=== PATIENT | female | born 1970 | race Caucasian/White ===

== ENCOUNTER 2016-07-21 19:01 | Emergency (ER) | payer OTHER ==
[~2016-07-21] VITALS: Ht 157.5 cm; Wt 82.1 kg
[~2016-07-21 19:01] MED LIST: EFFE150C PO; ULTR50TA5 PO; WARF-23 PO; ZOFR4TAB3 SL
[2016-07-21 19:23] VITALS: BP 158/113; PULSE 105; RESP 18; TEMP 99.1; O2SAT 96
[2016-07-21] MEDS ORDERED: MORPHINE SULFATE 4 MG/ML INJ IV PUSH ONE (20:00)
[2016-07-21] MEDS ORDERED: SODIUM CHLOR 0.9% 1000 ML INJ 1,000 ML IV SCH (20:00)
[2016-07-21 20:01] LABS: BLOOD, URINE LARGE (NEG); GLUCOSE,URINE NEG (NEG); KETONE, URINE NEG (NEG); NITRITE,URINE NEG (NEG); PH, URINE 5.5 (5.0-8.5)
[2016-07-21 20:03] LABS: URINE COLOR STRAW (YELLW/STRAW)
[2016-07-21 20:04] LABS: WBC, URINE 0-2 /hpf (0-5)
[2016-07-21 20:05] LABS: COMMENT (UR) CULT NOT INDICATED; CULTURE IF INDICATED CULT NOT INDICATED; SQUAMOUS EPITHELIAL CELL URINE 0-5 /hpf (0-5)
--- NOTE | 2016-07-21 20:25 | PD ---
HPI Chief Complaint: Complaint Time Seen by Provider: 19:58 Travel History International Travel<30 days: No Contact w/Intl Traveler<30days: No Traveled to known affect area: No History of Present Illness HPI 46-year-old female presents to the emergency department by private transportation for complaint of lower abdominal pain and lower back pain and hematuria. Patient states she started noticing that she didn't feel well on Sunday of this week and then noted today that she felt feverish and noted gross hematuria. Patient takes Coumadin for factor V Leiden. Patient rates her pain as moderate to severe. Patient denies frequency or urgency; but has had dysuria. Patient has been seen in the past for episodes of low back pain pelvic pain without vaginal bleeding and hematuria. Patient is status post hysterectomy, cholecystectomy and appendectomy. No report of vaginal bleeding. Patient has prior history of kidney stones chronic back pain and bleeding related to ovarian cyst. Patient states that her last INR about a month ago was 2.7 and her INR range is therapeutic between 2 and 3. Patient was to have her INR checked July 07 but was busy working and did not do so. Patient has not noted any increased bleeding specifically patient does not report increased ecchymosis gingival bleeding epistaxis hemoptysis hematemesis coffee-ground emesis melena or hematochezia. Patient did not contact her primary care provider. PFSH Past Medical History Narrative Medical Factor V Leiden deficiency anxiety asthma fibromyalgia celiac disease headache hypertension chronic back pain ovarian cyst hysterectomy cholecystectomy herniorrhaphy breast augmentation no tobacco use nursing notes reviewed Hx Anticoagulant Therapy: Yes (COUMADIN) Anemia: Yes (B12 DEFICIENCY) Arthritis: Yes Asthma: Yes Autoimmune Disease: Yes Blood Disorders: Yes (FACTOR V LEIDEN) Anxiety: Yes Depression: Yes Heart Rhythm Problems: No Cancer: No Cardiovascular Problems: No High Cholesterol: No Chemotherapy: No Chest Pain: No Congestive Heart Failure: No COPD: No Cerebrovascular Accident: No Diabetes: No Diminished Hearing: No Diverticulitis: Yes Endocrine: No Fibromyalgia: Yes Gastrointestinal Disorders: Yes (CELIAC DISEASE) GERD: Yes Genitourinary: No Headaches: Yes Hiatal Hernia: No Hypertension: Yes Immune Disorder: No Kidney Stones: Yes Musculoskeletal: Yes (CHRONIC BACK PAIN) Neurologic: Yes Psychiatric: Yes Reproductive: Yes (HYSTERECTOMY) Respiratory: Yes (ASTHMA) Immunizations Current: Yes Migraines: Yes Myocardial Infarction: No Radiation Therapy: No Renal Failure: No Seizures: No Shingles: Yes Sleep Apnea: No Thyroid Disease: No Ulcer: No PNEUMOCCOCAL Vaccine (Year): 2 ?: Not Menopausal: Yes : 3 Para: 3 Miscarriage: 0 : 0 Ovarian Cysts: Yes (RIGHT CYST DIAGNOSED IN APR 2015) Tubal Ligation: Yes Past Surgical History Abdominal Surgery: Yes (HERNIA) AICD: No Appendectomy: No Arteriovenous Shunt: No Cardiac Surgery: No Cholecystectomy: Yes Ear Surgery: No Endocrine Surgery: No Eye Surgery: No Genitourinary Surgery: No Gynecologic Surgery: Yes (LAPROSCOPY) Hysterectomy: Yes Insulin Pump: No Joint Replacement: No Neurologic Surgery: Yes (low back surgery) Oral Surgery: No Pacemaker: No Thoracic Surgery: No Tonsillectomy: Yes Other Surgery: Yes (HERNIA, BREAST ENHANCEMENT) Social History Alcohol Use: No Tobacco Use: No Substance Use: No Allergies-Medications (Allergen,Severity, Reaction): Coded Allergies: Adhesives (Verified Allergy, Severe, ON BAND AIDES AND SOME IV DRESSINGS, 07/21/16) Demerol (Verified Allergy, Severe, Hives, 07/21/16) Dilaudid (Verified Allergy, Severe, "CAUSES ASTHMA TO FLARE UP", 07/21/16) Keflex (Verified Allergy, Severe, HIVES, 07/21/16) Lodine (Verified Allergy, Severe, "ITCHY", 07/21/16) Lyrica (Verified Allergy, Severe, "MAKE WHOLE BODY ACHE", 07/21/16) Penicillin (Verified Allergy, Severe, CAN'T REMEMBER, 07/21/16) Percocet (Verified Allergy, Severe, Itching, 07/21/16) Versed (Verified Allergy, Severe, VOMITTING, 07/21/16) Atenolol (Verified Allergy, Unknown, Edema, 07/21/16) Cymbalta (Verified Adverse Reaction, Mild, BODY PAIN, 07/21/16) Reported Meds & Prescriptions Reported Meds & Active Scripts Active Zofran Odt (Ondansetron Odt) 4 Mg Tab 4 Mg SL Q6HR PRN Tramadol (Tramadol HCl) 50 Mg Tab 50 Mg PO Q8H PRN Pyridium (Phenazopyridine HCl) 100 Mg Tab 100 Mg PO Q8H PRN Reported Warfarin 5 Mg Tab 5 Mg PO DAILY Effexor XR 24 HR (Venlafaxine HCl) 150 Mg Cap 150 Mg PO DAILY Review of Systems Except as stated in HPI: all other systems reviewed are Neg General / Constitutional: Positive: Fever (subjective), No: Chills HENT: No: Nosebleed, Gingival Bleeding Cardiovascular: No: Chest Pain or Discomfort Respiratory: No: Shortness of Breath Gastrointestinal: Positive: Nausea, No: Hematemesis, Hematochezia Genitourinary: Positive: Hematuria, No: Vaginal Bleeding Musculoskeletal: No: Myalgias, Arthralgias Skin: No Rash Neurologic: No: Weakness Psychiatric: No: Anxiety Hematologic/Lymphatic: No: Easy Bruising Physical Exam Narrative GENERAL: Well-developed well-nourished female in no acute distress no respiratory distress SKIN: Warm and dry. HEAD: Normocephalic. EYES: No scleral icterus. No injection or drainage. NECK: Supple, trachea midline. No JVD or lymphadenopathy. CARDIOVASCULAR: Regular rate and rhythm without murmurs, gallops, or rubs. RESPIRATORY: Breath sounds equal bilaterally. No accessory muscle use. GASTROINTESTINAL: Abdomen soft, non-tender, nondistended. MUSCULOSKELETAL: No cyanosis, or edema. BACK: Nontender without obvious deformity. No CVA tenderness. Data Data Last Documented VS Vital Signs Date Time Temp Pulse Resp B/P Pulse Ox O2 Delivery O2 Flow Rate FiO2 07/21/16 19:23 99.1 105 18 158/113 96 Orders Urinalysis - C+S If Indicated (07/21/16 19:35) Prothrombin Time / Inr (Pt) (07/21/16 19:58) Morphine Inj (Morphine Inj) (07/21/16 20:00) Sodium Chlor 0.9% 1000 Ml Inj (Ns 1000 M (07/21/16 20:00) Complete Blood Count With Diff (07/21/16 19:58) Basic Metabolic Panel (Bmp) (07/21/16 19:58) Ct Abd/Pel W/O Iv Contrast (07/21/16 ) Ondansetron Inj (Zofran Inj) (07/21/16 20:30) Labs Laboratory Tests Test 07/21/16 07/21/16 19:35 20:15 Urine Color STRAW Urine Turbidity CLEAR Urine pH 5.5 Urine Specific [place] 1.005 Urine Protein TRACE mg/dL Urine Glucose (UA) NEG mg/dL Urine Ketones NEG mg/dL Urine Occult Blood LARGE Urine Nitrite NEG Urine Bilirubin NEG Urine Leukocyte Esterase NEG Urine RBC 25-49 /hpf Urine WBC 0-2 /hpf Urine Squamous Epithelial 0-5 /hpf Cells Microscopic Urinalysis Comment CULT NOT INDICATED White Blood Count 12.2 TH/MM3 Red Blood Count 5.34 MIL/MM3 Hemoglobin 14.5 GM/DL Hematocrit 43.4 % Mean Corpuscular Volume 81.1 FL Mean Corpuscular Hemoglobin 27.0 PG Mean Corpuscular Hemoglobin 33.3 % Concent Red Cell Distribution Width 14.9 % Platelet Count 242 TH/MM3 Mean Platelet Volume 9.8 FL Neutrophils (%) (Auto) 64.7 % Lymphocytes (%) (Auto) 28.5 % Monocytes (%) (Auto) 4.0 % Eosinophils (%) (Auto) 1.4 % Basophils (%) (Auto) 1.4 % Neutrophils # (Auto) 7.8 TH/MM3 Lymphocytes # (Auto) 3.5 TH/MM3 Monocytes # (Auto) 0.5 TH/MM3 Eosinophils # (Auto) 0.2 TH/MM3 Basophils # (Auto) 0.2 TH/MM3 CBC Comment DIFF FINAL Differential Comment Prothrombin Time 24.6 SEC Prothromb Time International 2.2 RATIO Ratio Sodium Level 141 MEQ/L Potassium Level 3.4 MEQ/L Chloride Level 102 MEQ/L Carbon Dioxide Level 29.5 MEQ/L Anion Gap 10 MEQ/L Blood Urea Nitrogen 10 MG/DL Creatinine 0.90 MG/DL Estimat Glomerular Filtration 67 ML/MIN Rate Random Glucose 103 MG/DL Calcium Level 8.9 MG/DL [facility] Medical Decision Making Medical Screen Exam Complete: Yes Emergency Medical Condition: Yes Medical Record Reviewed: Yes Interpretation(s) Last Impressions Abdomen/Pelvis CT 07/21/16 0000 Signed Impressions: Service Date/Time: Thursday, July 21, 2016 20:24 - CONCLUSION: 1. The kidneys remain unremarkable with no renal calculi or obstruction. 2. Status post cholecystectomy. 3. Stable right-sided bladder calcifications. Billy Roy MD CBC & BMP Diagram 07/21/16 20:15 Vital Signs Date Time Temp Pulse Resp B/P Pulse Ox O2 Delivery O2 Flow Rate FiO2 07/21/16 19:23 99.1 105 18 158/113 96 Urinalysis: Positive for large blood and rbc's 25-49 otherwise values are normal range and culture is not indicated INR is therapeutic at 2.2 Differential Diagnosis Hematuria, UTI, renal mass, bladder mass, bladder hematoma, Coumadin coagulopathy Narrative Course Due to patient's complaint of pain morphine sulfate 3 mg IV was administered along with Zofran 4 mg IV for complaint of nausea and maintenance IV fluids at 100 cc Specimens are collected and sent for resulting; CT abdomen and pelvis kidney stone protocol ordered Lab values found to be grossly within normal range except for total white cell count 12,200 nonspecific with normal automated differential hemoglobin and platelet count; metabolic panel was remarkable for mild hypokalemia of 3.4 values otherwise grossly normal range; urinalysis did show large blood with 25- 49 rbc's but no indication for culture and denies otherwise in normal range; patient's INR is therapeutic at 2.2 as patient does take warfarin therapy Imaging study was found to be essentially unremarkable and no evidence for renal stone hydroureter or hydronephrosis renal mass or concern for bladder mass. Patient noted to have some stable bladder calcifications unchanged from previous study. At 9:12 PM patient is informed of lab results and reports feels clinically somewhat improved but is very concerned that she's deftly had discomfort with urination and is very concerned she may have an early urinary tract infection. Patient is aware that urinalysis shows no evidence of bacteriuria. Patient states that symptoms are typical for her thus will provide patient with a prescription for Pyridium for discomfort with urination although patient denies this as a burning sensation and also provide her a prescription for tramadol for pain along with Zofran due to her multiple allergies and we'll send a urine specimen for culture and sensitivity. Diagnosis Primary Impression: Hematuria Additional Impression: Cystitis with hematuria Referrals: Primary Care Physician 3 days Patient Instructions: General Instructions, Narcotic given in the ED Additional Instructions: Increase fluid hydration Monitor temperature every 4 hours with thermometer and take as needed acetaminophen/Tylenol for fever 100.4F or greater Take pain medication as prescribed as needed Take medication as prescribed as needed for nausea and/or vomiting Follow-up with your primary care physician call office on Sunday Return to the emergency department for fever pain vomiting increased bleeding or any concerns Med/Other Pt SpecificInfo: Prescription(s) given Scripts Ondansetron Odt (Zofran Odt)4 Mg Tab4 Mg SL Q6HR PRN (Nausea/Vomiting) #10 TAB Ref 0 Prov:Jessica Snider MD 07/21/16 Tramadol 50 Mg Tab50 Mg PO Q8H PRN (PAIN) #7 TAB Ref 0 Prov:Jessica Snider MD 07/21/16 Phenazopyridine (Pyridium)100 Mg Zpo006 Mg PO Q8H PRN (DYSURIA) #6 TAB Ref 0 Prov:Jessica Snider MD 07/21/16 Disposition: 01 DISCHARGE HOME Condition: Stable Jessica Snider MD Jul 21, 2016 20:25
[2016-07-21] MEDS ORDERED: ONDANSETRON HCL 4 MG/2 ML VIAL IV PUSH ONE (20:30)
[2016-07-21 20:33] LABS: AUTOMATED NEUTROPHIL # 7.8 TH/MM3 (1.8-7.7); BASOPHIL # 0.2 TH/MM3 (0-0.2); BASOPHIL % 1.4 % (0.0-2.0); EOSINOPHIL # 0.2 TH/MM3 (0-0.4); EOSINOPHIL % 1.4 % (0.0-4.0); HEMATOCRIT 43.4 % (35.0-46.0); LYMPH % 28.5 % (9.0-44.0); LYMPHOCYTE # 3.5 TH/MM3 (1.0-4.8); MEAN CELL VOLUME 81.1 FL (80.0-100.0); MEAN CORPUSCULAR HGB CONC 33.3 % (32.0-36.0); NEUT % 64.7 % (16.0-70.0); PLATELET COUNT 242 TH/MM3 (150-450); RED BLOOD COUNT 5.34 MIL/MM3 (4.00-5.30); RED CELL DISTRIBUTION WIDTH 14.9 % (11.6-17.2); WHITE BLOOD COUNT 12.2 TH/MM3 (4.0-11.0)
[2016-07-21 20:35] LABS: HEMO FLAGS DIFF FINAL
[2016-07-21 20:39] LABS: POTASSIUM 3.4 MEQ/L (3.5-5.1)
[2016-07-21 20:40] LABS: INTERNATIONAL NORMALIZED RATIO 2.2 RATIO; PROTHROMBIN TIME - PATIENT 24.6 SEC (9.8-11.6)
[2016-07-21 20:42] LABS: BICARBONATE 29.5 MEQ/L (21.0-32.0)
--- NOTE | 2016-07-21 20:57 | RADHPO ---
EXAM DATE/TIME: 07/21/2016 20:24 [facility] COMPARISON: CT ABDOMEN & PELVIS W/O CONTRAST, April 16, 2016, 3:04. INDICATIONS : Hematuria for two days. ORAL CONTRAST: No oral contrast ingested. RADIATION DOSE: 18.88 CTDIvol (mGy) MEDICAL HISTORY : Diverticulitis. Gastroesophageal reflux disease. Renal calculi. SURGICAL HISTORY : Cholecystectomy. Hysterectomy. ENCOUNTER: Initial ACUITY: 2 days PAIN SCALE: 4/10 LOCATION: Abdomen. TECHNIQUE: Volumetric scanning of the abdomen and pelvis was performed. Using automated exposure control and ad justment of the mA and/or kV according to patient size, radiation dose was kept as low as reasonably achievable to obtain optimal diagnostic quality images. FINDINGS: LOWER LUNGS: The visualized lower lungs are clear. LIVER: Homogeneous density without lesion. There is no dilation of the biliary tree. No calcified gallston es. SPLEEN: Normal size without lesion. PANCREAS: Within normal limits. KIDNEYS: Normal in size and shape. There is no mass, stone, or hydronephrosis. ADRENAL GLANDS: Within normal limits. VASCULAR: There is no aortic aneurysm. BOWEL/MESENTERY: The stomach, small bowel, and colon demonstrate no acute abnormality. There is no free intraperitone al air or fluid. ABDOMINAL WALL: Within normal limits. RETROPERITONEUM: There is no lymphadenopathy. BLADDER: No wall thickening or mass. There is stable calcifications in the right side of the bladder and REPRODUCTIVE: Within normal limits. INGUINAL: There is no lymphadenopathy or hernia. MUSCULOSKELETAL: Postsurgical changes present in lumbar spine status post multilevel fusion. CONCLUSION: 1. The kidneys remain unremarkable with no renal calculi or obstruction. 2. Status post cholecystectomy. 3. Stable right-sided bladder calcifications. Billy Roy MD on July 21, 2016 at 20:53 Board Certified Radiologist. This report was verified electronically.
[2016-07-21] MEDS ORDERED: TRAM50TA PO (21:22)
[2016-07-21] MEDS ORDERED: ZOFR4TAB3 SL (21:22)
[2016-07-21] MEDS ORDERED: PHEN0.4T PO (21:22)
[2016-07-21 21:36] VITALS: BP 147/92; PULSE 90; RESP 18; O2SAT 97
== END 2016-07-21 21:37 | disposition home or self-care (01) ==
LOC: PHEFT 19:01
DX: N30.01 Acute cystitis with hematuria (principal)
CPT/HCPCS: 74176; 80048; 81001; 85025; 85610; 87086; 96361; 96374; 96375; 99284; J2270; J2405; J7030

== ENCOUNTER 2016-08-25 11:14 | Emergency (ER) | payer OTHER ==
[~2016-08-25] VITALS: Ht 157.5 cm; Wt 78.0 kg
[~2016-08-25 11:14] MED LIST changes: +PHEN0.4T PO; +TRAM50TA PO; -ULTR50TA5 PO
[2016-08-25 11:23] VITALS: BP 139/98; PULSE 100; RESP 16; TEMP 98.1; O2SAT 95
[2016-08-25 11:49] VITALS: BP 125/101; PULSE 88; RESP 18; O2SAT 97
[2016-08-25] MEDS ORDERED: CLON.5 PO (12:18)
[2016-08-25] MEDS ORDERED: LOPERAMIDE HCL 2 MG CAP PO ONE (12:30)
[2016-08-25] MEDS ORDERED: SODIUM CHLOR 0.9% 1000 ML INJ 1,000 ML IV SCH (12:30)
[2016-08-25 12:59] LABS: POTASSIUM 4.3 MEQ/L (3.5-5.1)
[2016-08-25] MEDS ORDERED: LOPERAMIDE HCL SOLN 2 MG/10 ML UDC PO PRN (13:00)
[2016-08-25 13:03] LABS: BICARBONATE 30.5 MEQ/L (21.0-32.0)
[2016-08-25] MEDS ORDERED: LOPE1LIQ3 PO (13:13)
--- NOTE | 2016-08-25 13:13 | PD ---
HPI Chief Complaint: GI Complaint Time Seen by Provider: 11:52 Travel History International Travel<30 days: No Contact w/Intl Traveler<30days: No Traveled to known affect area: No History of Present Illness HPI So 46 year-old woman who presents to the emergency department complaining of diarrhea for the past week. She is a history of chronic recurrent diarrhea ongoing for 6 years or so. Etiology is unclear. 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 She's had endoscopies with Dr. Rouse before. The symptoms started about a week or so ago. She endorses liquid stools. No blood. She has had some decreased appetite as well. She's been feeling woozy and unsteady. She has some headache. No sick contacts. She does have some chills. No nausea or vomiting. She does have some epigastric pain. She has her gallbladder taken out. She's tried Pepto-Bismol home but hasn't really helped. She states loperamide is given her constipation in the past that she doesn't use it. History Past Medical History Narrative Medical Rectovaginal fistula Factor V Leiden, found to be genetic testing because her mom had symptoms, she' s never had any trouble clotting Chronic recurrent diarrhea Tetanus Vaccination: < 5 Years Influenza Vaccination: No PNEUMOCCOCAL Vaccine (Year): 2 Menopausal: Yes : 3 Para: 3 Social History Alcohol Use: No Tobacco Use: No Allergies-Medications (Allergen,Severity, Reaction): Coded Allergies: Adhesives (Verified Allergy, Severe, ON BAND AIDES AND SOME IV DRESSINGS, 08/25/16) Demerol (Verified Allergy, Severe, Hives, 08/25/16) Dilaudid (Verified Allergy, Severe, "CAUSES ASTHMA TO FLARE UP", 08/25/16) Keflex (Verified Allergy, Severe, HIVES, 08/25/16) Lodine (Verified Allergy, Severe, "ITCHY", 08/25/16) Lyrica (Verified Allergy, Severe, "MAKE WHOLE BODY ACHE", 08/25/16) Penicillin (Verified Allergy, Severe, CAN'T REMEMBER, 08/25/16) Percocet (Verified Allergy, Severe, Itching, 08/25/16) Versed (Verified Allergy, Severe, VOMITTING, 08/25/16) Atenolol (Verified Allergy, Unknown, Edema, 08/25/16) Cymbalta (Verified Adverse Reaction, Mild, BODY PAIN, 08/25/16) Reported Meds & Prescriptions Reported Meds & Active Scripts Active Reported Klonopin (Clonazepam) 0.5 Mg Tab 0.25 Mg PO HS Warfarin 5 Mg Tab 5.5 Mg PO DAILY Effexor XR 24 HR (Venlafaxine HCl) 150 Mg Cap 150 Mg PO DAILY Review of Systems Except as stated in HPI: all other systems reviewed are Neg Physical Exam Narrative GENERAL: Well-appearing 38 year-old woman, no acute distress. SKIN: Focused skin assessment warm/dry. HEAD: Atraumatic. Normocephalic. CARDIOVASCULAR: Regular rate and rhythm. No murmur appreciated. RESPIRATORY: No accessory muscle use. Clear to auscultation. Breath sounds equal bilaterally. GASTROINTESTINAL: Normal contour and appearance. Minimal epigastric tenderness. MUSCULOSKELETAL: No obvious deformities. No clubbing. No cyanosis. No edema. NEUROLOGICAL: Awake and alert. No obvious cranial nerve deficits. Motor grossly within normal limits. Normal speech. PSYCHIATRIC: Appropriate mood and affect; insight and judgment normal. Data Data Last Documented VS Vital Signs Date Time Temp Pulse Resp B/P Pulse Ox O2 Delivery O2 Flow Rate FiO2 08/25/16 11:49 88 18 125/101 97 Room Air 08/25/16 11:23 98.1 Orders Basic Metabolic Panel (Bmp) (08/25/16 12:23) Iv Access Insert/Monitor (08/25/16 12:23) Sodium Chlor 0.9% 1000 Ml Inj (Ns 1000 M (08/25/16 12:30) Loperamide (Imodium) (08/25/16 12:30) Loperamide Liq (Imodium Liq) (08/25/16 13:00) Labs Laboratory Tests Test 08/25/16 11:55 Sodium Level 139 MEQ/L Potassium Level 4.3 MEQ/L Chloride Level 103 MEQ/L Carbon Dioxide Level 30.5 MEQ/L Anion Gap 6 MEQ/L Blood Urea Nitrogen 6 MG/DL Creatinine 0.86 MG/DL Estimat Glomerular Filtration 70 ML/MIN Rate Random Glucose 84 MG/DL Calcium Level 9.2 MG/DL MDM Medical Decision Making Medical Screen Exam Complete: Yes Emergency Medical Condition: Yes Interpretation(s) BMP unremarkable Differential Diagnosis Chronic diarrhea, colitis, enteritis, IBD, IBS, other Narrative Course Medical decision-making 38 year-old woman of recurrent diarrhea. She looks well. She does not appear dehydrated. She has no significant tenderness. She states she's had trouble constipation from loperamide in the past. I think she be safe to take a half dose loperamide. We'll give her prescription for liquid. Diagnosis Primary Impression: Diarrhea Patient Instructions: General Instructions Additional Instructions: Use loperamide 1 mg up to 3 times daily. Follow-up with your primary doctor in the next several days. Return to the emergency department for any worsening abdominal pain, bloody diarrhea, or high fevers. Med/Other Pt SpecificInfo: Prescription(s) given Scripts Loperamide Liq 1 Mg/5 Ml Liq1 Mg PO TID PRN (DIARRHEA) #1 BOTTLE Ref 0 Prov:Hunter Hayes MD 08/25/16 Disposition: 01 DISCHARGE HOME Condition: Stable Hunter Hayes MD Aug 25, 2016 13:13
[2016-08-25 13:44] VITALS: BP 100/60
== END 2016-08-25 13:46 | disposition home or self-care (01) ==
LOC: PHED 11:14
DX: R19.7 Diarrhea, unspecified (principal); R42 Dizziness and giddiness; R51 Headache; R10.13 Epigastric pain; N82.3 Fistula of vagina to large intestine; Z87.898 Personal history of other specified conditions
CPT/HCPCS: 80048; 96360; 99284; J7030

== ENCOUNTER 2016-11-10 11:11 | Emergency (ER) | payer OTHER ==
[~2016-11-10] VITALS: Ht 160 cm; Wt 81.0 kg
[~2016-11-10 11:11] MED LIST changes: +CLON.5 PO; +LOPE1LIQ3 PO; -PHEN0.4T PO; -TRAM50TA PO; -ZOFR4TAB3 SL
[2016-11-10 11:14] VITALS: BP 163/105; PULSE 139; RESP 17; TEMP 98.8; O2SAT 96
[2016-11-10] MEDS ORDERED: AMLO5TAB2 PO (11:30)
[2016-11-10] MEDS ORDERED: MORPHINE SULFATE 8 MG/ML INJ ONE (11:45)
[2016-11-10] MEDS ORDERED: MORPHINE SULFATE 4 MG/ML INJ IV PUSH ONE (11:45)
[2016-11-10] MEDS ORDERED: ONDANSETRON HCL 4 MG/2 ML VIAL IVP ONE (11:45)
--- NOTE | 2016-11-10 11:46 | PD ---
HPI Chief Complaint: Abdominal Pain Time Seen by Provider: 11:20 Travel History International Travel<30 days: No Contact w/Intl Traveler<30days: No Traveled to known affect area: No History of Present Illness HPI The patient was seen and examined in the presence of the nurse. She complains of dental pain. Location is left lower quadrant. Duration 24 hours. Severity is moderate. 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 She denies fever or vomiting. She has chronic diarrhea. She takes Coumadin for factor V Leiden mutation. She denies rectal bleeding or vaginal bleeding. She has had a hysterectomy. No alleviating factors. PFSH Past Medical History Hx Anticoagulant Therapy: Yes Anemia: Yes (B12 DEFICIENCY) Arthritis: Yes Asthma: Yes Autoimmune Disease: Yes Blood Disorders: Yes (FACTOR V LEIDEN) Anxiety: Yes Depression: Yes Heart Rhythm Problems: No Cancer: No Cardiovascular Problems: Yes (HTN) High Cholesterol: No Chemotherapy: No Chest Pain: No Congestive Heart Failure: No COPD: No Cerebrovascular Accident: No Diabetes: No Diminished Hearing: No Diverticulitis: Yes (FISTULA) Endocrine: No Fibromyalgia: Yes Gastrointestinal Disorders: Yes (FISTULA) GERD: Yes Genitourinary: No Headaches: Yes Hiatal Hernia: No Hypertension: Yes Immune Disorder: No Kidney Stones: Yes Musculoskeletal: Yes (CHRONIC BACK PAIN) Neurologic: Yes Psychiatric: Yes Reproductive: Yes (HYSTERECTOMY) Respiratory: Yes (ASTHMA) Immunizations Current: Yes Migraines: Yes Myocardial Infarction: No Radiation Therapy: No Renal Failure: No Seizures: No Shingles: Yes Sleep Apnea: No Thyroid Disease: No Ulcer: No Tetanus Vaccination: < 5 Years Influenza Vaccination: No PNEUMOCCOCAL Vaccine (Year): 2 ?: Not Menopausal: Yes : 3 Para: 3 Miscarriage: 0 : 0 Ovarian Cysts: Yes (RIGHT CYST DIAGNOSED IN APR 2015) Tubal Ligation: Yes Past Surgical History Abdominal Surgery: Yes (HERNIA) AICD: No Appendectomy: No Arteriovenous Shunt: No Cardiac Surgery: No Cholecystectomy: Yes Ear Surgery: No Endocrine Surgery: No Eye Surgery: No Genitourinary Surgery: No Gynecologic Surgery: Yes (LAPROSCOPY) Hysterectomy: Yes Insulin Pump: No Joint Replacement: No Neurologic Surgery: Yes (low back surgery) Oral Surgery: No Pacemaker: No Thoracic Surgery: No Tonsillectomy: Yes Other Surgery: Yes (HERNIA, BREAST ENHANCEMENT) Social History Alcohol Use: No Tobacco Use: No Substance Use: No Allergies-Medications (Allergen,Severity, Reaction): Coded Allergies: Adhesives (Verified Allergy, Severe, ON BAND AIDES AND SOME IV DRESSINGS, 11/10/16) Demerol (Verified Allergy, Severe, Hives, 11/10/16) Dilaudid (Verified Allergy, Severe, "CAUSES ASTHMA TO FLARE UP", 11/10/16) Keflex (Verified Allergy, Severe, HIVES, 11/10/16) Lodine (Verified Allergy, Severe, "ITCHY", 11/10/16) Lyrica (Verified Allergy, Severe, "MAKE WHOLE BODY ACHE", 11/10/16) Penicillin (Verified Allergy, Severe, CAN'T REMEMBER, 11/10/16) Percocet (Verified Allergy, Severe, Itching, 11/10/16) Versed (Verified Allergy, Severe, VOMITTING, 11/10/16) Atenolol (Verified Allergy, Unknown, Edema, 11/10/16) Iodine (Verified Allergy, Unknown, 11/10/16) Cymbalta (Verified Adverse Reaction, Mild, BODY PAIN, 11/10/16) Reported Meds & Prescriptions Reported Meds & Active Scripts Active Reported Amlodipine (Amlodipine Besylate) 5 Mg Tab 5 Mg PO DAILY Warfarin 5 Mg Tab 5.5 Mg PO DAILY Effexor XR 24 HR (Venlafaxine HCl) 150 Mg Cap 150 Mg PO DAILY Review of Systems General / Constitutional: No: Fever Eyes: No: Visual changes HENT: No: Headaches Cardiovascular: No: Chest Pain or Discomfort Respiratory: No: Shortness of Breath Gastrointestinal: Positive: Diarrhea, Abdominal Pain Genitourinary: Positive: Pelvic Pain, No: Dysuria Musculoskeletal: No: Pain Skin: No Rash Neurologic: No: Weakness Psychiatric: No: Depression Endocrine: No: Polydipsia Hematologic/Lymphatic: No: Easy Bruising Physical Exam Narrative GENERAL: Well-nourished, well-developed patient with left lower quadrant pain. SKIN: Focused skin assessment reveals no rash and nodules. Skin is Warm and dry. HEAD: Atraumatic. Normocephalic. EYES: Pupils equal and round. No scleral icterus. No injection or drainage. ENT: No nasal bleeding or discharge. Mucous membranes pink and moist. NECK: Trachea midline. No JVD. CARDIOVASCULAR: Regular rate and rhythm. No murmur appreciated. RESPIRATORY: No accessory muscle use. Clear to auscultation. Breath sounds equal bilaterally. GASTROINTESTINAL: Abdomen soft, left lower quadrant is tender without rebound or guarding. Hepatic and splenic margins not palpable. MUSCULOSKELETAL: No obvious deformities. No clubbing. No cyanosis. No edema. NEUROLOGICAL: Awake and alert. No obvious cranial nerve deficits. Motor grossly within normal limits. Normal speech. PSYCHIATRIC: Appropriate mood and affect; insight and judgment normal. Data Data Last Documented VS Vital Signs Date Time Temp Pulse Resp B/P Pulse Ox O2 Delivery O2 Flow Rate FiO2 11/10/16 11:14 98.8 139 17 163/105 96 Orders Iv Access Insert/Monitor (11/10/16 11:37) Complete Blood Count With Diff (11/10/16 11:37) Basic Metabolic Panel (Bmp) (11/10/16 11:37) Prothrombin Time / Inr (Pt) (11/10/16 11:37) Ondansetron Inj (Zofran Inj) (11/10/16 11:45) Morphine Inj (Morphine Inj) (11/10/16 11:45) Ct Abd/Pel W/O Iv Contrast (11/10/16 ) Morphine Inj (Morphine Inj) (11/10/16 11:45) Labs Laboratory Tests Test 11/10/16 11:45 White Blood Count 12.6 TH/MM3 Red Blood Count 5.44 MIL/MM3 Hemoglobin 14.6 GM/DL Hematocrit 44.1 % Mean Corpuscular Volume 81.0 FL Mean Corpuscular Hemoglobin 26.7 PG Mean Corpuscular Hemoglobin 33.0 % Concent Red Cell Distribution Width 14.1 % Platelet Count 272 TH/MM3 Mean Platelet Volume 9.2 FL Neutrophils (%) (Auto) 60.3 % Lymphocytes (%) (Auto) 31.9 % Monocytes (%) (Auto) 5.5 % Eosinophils (%) (Auto) 1.5 % Basophils (%) (Auto) 0.8 % Neutrophils # (Auto) 7.6 TH/MM3 Lymphocytes # (Auto) 4.0 TH/MM3 Monocytes # (Auto) 0.7 TH/MM3 Eosinophils # (Auto) 0.2 TH/MM3 Basophils # (Auto) 0.1 TH/MM3 CBC Comment DIFF FINAL Differential Comment Prothrombin Time 23.3 SEC Prothromb Time International 2.0 RATIO Ratio Sodium Level 138 MEQ/L Potassium Level 3.5 MEQ/L Chloride Level 104 MEQ/L Carbon Dioxide Level 23.4 MEQ/L Anion Gap 11 MEQ/L Blood Urea Nitrogen 9 MG/DL Creatinine 0.75 MG/DL Estimat Glomerular Filtration 82 ML/MIN Rate Random Glucose 86 MG/DL Calcium Level 8.9 MG/DL MDM Medical Decision Making Medical Screen Exam Complete: Yes Emergency Medical Condition: Yes Medical Record Reviewed: Yes Differential Diagnosis Ovarian cystic disease, diverticulitis, colitis Narrative Course I have reviewed the patient's electronic medical record. Patient is a frequent visitor for abdominal pain. She has had many imaging studies of the abdomen and pelvis over the last 3 years IV placed CBC shows hemoglobin of 14.6 Metabolic profile is normal INR on Coumadin is 2.0 CT of abdomen and pelvis shows no emergent findings I gave her injection of morphine and Zofran for symptom relief Stable for outpatient follow-up. Diagnosis Primary Impression: Abdominal pain Qualified Code: R10.32 - Left lower quadrant pain Additional Impression: Factor V Leiden Additional Instructions: The patient was advised to follow up with their physician and return if they worsen. Med/Other Pt SpecificInfo: Other Disposition: 01 DISCHARGE HOME Condition: Stable Kendell Jimenez MD Nov 10, 2016 11:45
[2016-11-10 11:54] LABS: AUTOMATED NEUTROPHIL # 7.6 TH/MM3 (1.8-7.7); BASOPHIL # 0.1 TH/MM3 (0-0.2); BASOPHIL % 0.8 % (0.0-2.0); EOSINOPHIL # 0.2 TH/MM3 (0-0.4); EOSINOPHIL % 1.5 % (0.0-4.0); HEMATOCRIT 44.1 % (35.0-46.0); HEMO FLAGS DIFF FINAL; LYMPH % 31.9 % (9.0-44.0); MEAN CORPUSCULAR HEMOGLOBIN 26.7 PG (27.0-34.0); MONO % 5.5 % (0.0-8.0); NEUT % 60.3 % (16.0-70.0); PLATELET COUNT 272 TH/MM3 (150-450); RED BLOOD COUNT 5.44 MIL/MM3 (4.00-5.30); RED CELL DISTRIBUTION WIDTH 14.1 % (11.6-17.2); WHITE BLOOD COUNT 12.6 TH/MM3 (4.0-11.0)
[2016-11-10 12:03] LABS: POTASSIUM 3.5 MEQ/L (3.5-5.1)
[2016-11-10 12:06] LABS: BICARBONATE 23.4 MEQ/L (21.0-32.0); PROTHROMBIN TIME - PATIENT 23.3 SEC (9.8-11.6)
--- NOTE | 2016-11-10 12:29 | RADRPT ---
EXAM DATE/TIME: 11/10/2016 11:57 [facility] COMPARISON: CT ABDOMEN & PELVIS W/O CONTRAST, July 21, 2016, 20:24. INDICATIONS : Left lower quadrant pain. Nausea. ORAL CONTRAST: No oral contrast ingested. RADIATION DOSE: 13.29 CTDIvol (mGy) MEDICAL HISTORY : Diverticulitis. Hypertension. SURGICAL HISTORY : Cholecystectomy. Hysterectomy.Fusion, lumbar. ENCOUNTER: Initial ACUITY: 1 day PAIN SCALE: 7/10 LOCATION: Left lower quadrant TECHNIQUE: Volumetric scanning of the abdomen and pelvis was performed. Using automated exposure control and ad justment of the mA and/or kV according to patient size, radiation dose was kept as low as reasonably achievable to obtain optimal diagnostic quality images. DICOM format image data is available electro nically for review and comparison. FINDINGS: The lung base is clear. Breast implants are noted. There is no pericardial effusion. The liver, spleen, pancreas and adrenals are unremarkable. The gallbladder is surgically absent Right and left kidneys are unremarkable There is no lymphadenopathy. There is no hernia. In the pelvis there is no free fluid. I do not see evidence for diverticulitis. Translumbar fixation is evident at L3-4. CONCLUSION: Previous lumbar spine surgery, otherwise negative. I do not see an etiology for patient's abdominal pain. Ike Morales MD FACR on November 10, 2016 at 12:25 Board Certified Radiologist. This report was verified electronically.
[2016-11-10 13:46] VITALS: BP 118/75
== END 2016-11-10 14:14 | disposition home or self-care (01) ==
LOC: PHED 11:11
DX: R10.32 Left lower quadrant pain (principal); D68.51 Activated protein C resistance; Z88.0 Allergy status to penicillin; Z90.49 Acquired absence of other specified parts of digestive tract; I10 Essential (primary) hypertension; Z79.01 Long term (current) use of anticoagulants; M79.7 Fibromyalgia; K21.9 Gastro-esophageal reflux disease without esophagitis; J45.909 Unspecified asthma, uncomplicated; Z87.442 Personal history of urinary calculi
CPT/HCPCS: 74176; 80048; 85025; 85610; 96374; 96375; 99285; J2270; J2405

== ENCOUNTER 2016-12-10 09:25 | Emergency (ER) | payer OTHER ==
[~2016-12-10] VITALS: Ht 160 cm; Wt 82.9 kg
[~2016-12-10 09:25] MED LIST changes: +AMLO5TAB2 PO; -CLON.5 PO; -LOPE1LIQ3 PO
[2016-12-10 09:30] VITALS: BP 157/107; PULSE 102; RESP 14; TEMP 98.6; O2SAT 98
[2016-12-10] MEDS ORDERED: ACETAMINOPHEN/HYDROcodone 325 MG/5 MG TAB PO ONE (09:45)
[2016-12-10] MEDS ORDERED: TETANUS/DIPHTHERIA TOXOID ADULT 0.5 ML VIAL IM ONE (09:45)
--- NOTE | 2016-12-10 09:52 | PD ---
HPI Chief Complaint: left leg pain Time Seen by Provider: 09:43 Travel History International Travel<30 days: No Contact w/Intl Traveler<30days: No Traveled to known affect area: No History of Present Illness HPI The patient is a 46-year-old female who presents to the emergency department for left flank pain. The patient states she was walking her daughter 's dog earlier today and had the lesion wrapped around her right wrist when the dog suddenly rushed off because there was another dog coming from the opposite direction. The patient states she fell forward, landing on the anterior aspect left lower extremity. She was able to ambulate home and had no pain, however, an hour later she developed some swelling of the anterior aspect of the proximal left tibia/fibula with some bruising visible. The patient states it is somewhat painful. She also notes some superficial abrasions over the affected area. She cannot recall the year her last tetanus shot was administered. The patient does take Coumadin secondary to factor V Leiden deficiency. The patient is able to and bleed on the left lower extremity. She denies any numbness or tingling to the left foot. She denies any head trauma or neck trauma with the fall. Symptoms are mild, exacerbated after falling, and there are no current alleviating factors. PFSH Past Medical History Hx Anticoagulant Therapy: Yes Anemia: Yes (B12 DEFICIENCY) Arthritis: Yes Asthma: Yes Autoimmune Disease: Yes Blood Disorders: Yes (FACTOR V LEIDEN) Anxiety: Yes Depression: Yes Heart Rhythm Problems: No Cancer: No Cardiovascular Problems: Yes (HTN) High Cholesterol: No Chemotherapy: No Chest Pain: No Congestive Heart Failure: No COPD: No Cerebrovascular Accident: No Diabetes: No Diminished Hearing: No Diverticulitis: Yes (FISTULA) Endocrine: No Fibromyalgia: Yes Gastrointestinal Disorders: Yes (FISTULA) GERD: Yes Genitourinary: No Headaches: Yes Hiatal Hernia: No Hypertension: Yes Immune Disorder: No Kidney Stones: Yes Musculoskeletal: Yes (CHRONIC BACK PAIN) Neurologic: Yes Psychiatric: Yes Reproductive: Yes (HYSTERECTOMY) Respiratory: Yes (ASTHMA) Immunizations Current: Yes Migraines: Yes Myocardial Infarction: No Radiation Therapy: No Renal Failure: No Seizures: No Shingles: Yes Sleep Apnea: No Thyroid Disease: No Ulcer: No PNEUMOCCOCAL Vaccine (Year): 2 Menopausal: Yes : 3 Para: 3 Miscarriage: 0 : 0 Ovarian Cysts: Yes (RIGHT CYST DIAGNOSED IN APR 2015) Tubal Ligation: Yes Past Surgical History Abdominal Surgery: Yes (HERNIA) AICD: No Appendectomy: No Arteriovenous Shunt: No Cardiac Surgery: No Cholecystectomy: Yes Ear Surgery: No Endocrine Surgery: No Eye Surgery: No Genitourinary Surgery: No Gynecologic Surgery: Yes (LAPROSCOPY) Hysterectomy: Yes Insulin Pump: No Joint Replacement: No Neurologic Surgery: Yes (low back surgery) Oral Surgery: No Pacemaker: No Thoracic Surgery: No Tonsillectomy: Yes Other Surgery: Yes (HERNIA, BREAST ENHANCEMENT) Social History Alcohol Use: No Tobacco Use: No Substance Use: No Allergies-Medications (Allergen,Severity, Reaction): Coded Allergies: Adhesives (Verified Allergy, Severe, ON BAND AIDES AND SOME IV DRESSINGS, 12/10/16) Demerol (Verified Allergy, Severe, Hives, 12/10/16) Dilaudid (Verified Allergy, Severe, "CAUSES ASTHMA TO FLARE UP", 12/10/16) Keflex (Verified Allergy, Severe, HIVES, 12/10/16) Lodine (Verified Allergy, Severe, "ITCHY", 12/10/16) Lyrica (Verified Allergy, Severe, "MAKE WHOLE BODY ACHE", 12/10/16) Penicillin (Verified Allergy, Severe, CAN'T REMEMBER, 12/10/16) Percocet (Verified Allergy, Severe, Itching, 12/10/16) Versed (Verified Allergy, Severe, VOMITTING, 12/10/16) Atenolol (Verified Allergy, Unknown, Edema, 12/10/16) Iodine (Verified Allergy, Unknown, 12/10/16) Cymbalta (Verified Adverse Reaction, Mild, BODY PAIN, 12/10/16) Reported Meds & Prescriptions Reported Meds & Active Scripts Active Reported Amlodipine (Amlodipine Besylate) 10 Mg Tab 10 Mg PO DAILY Warfarin 5 Mg Tab 5.5 Mg PO DAILY Effexor XR 24 HR (Venlafaxine HCl) 150 Mg Cap 150 Mg PO DAILY Review of Systems Except as stated in HPI: all other systems reviewed are Neg HENT: No: Headaches, Neck Pain Musculoskeletal: Positive: Edema, Pain Skin: Positive Other (abrasions over the anterior aspect the left lower extremity) Neurologic: No: Paresthesia, Sensory Disturbance Physical Exam Narrative GENERAL: Awake, alert, pleasant 46-year-old female who appears her stated age and is in no acute respiratory distress. SKIN: Focused skin assessment warm/dry. Superficial abrasion of the anterior aspect of the proximal left tibia/fibular. HEAD: Atraumatic. Normocephalic. EYES: No injection or drainage. ENT: No nasal bleeding or discharge. Mucous membranes pink and moist. NECK: Trachea midline. No JVD. MUSCULOSKELETAL: The patient is able to ambulate. The patient has mild edema over the anterior aspect the left tibia-fibula. The patient is able to flex the left knee to 90 as well as plantarflex and dorsiflex the left ankle without difficulty. Passive range of motion of the left lower extremity does not exacerbate her pain. 2+ left dorsalis pedal pulse. Hematoma noted over the anterior left tibia-fibula. NEUROLOGICAL: Awake and alert. No obvious cranial nerve deficits. Motor grossly within normal limits. Normal speech. Sensation is intact of the medial , lateral, dorsal aspect of the left foot. PSYCHIATRIC: Appropriate mood and affect; insight and judgment normal. Data Data Last Documented VS Vital Signs Date Time Temp Pulse Resp B/P Pulse Ox O2 Delivery O2 Flow Rate FiO2 12/10/16 10:00 Room Air 12/10/16 09:30 98.6 102 14 157/107 98 Orders Tetanus/Diphtheria Tox Adult (Tetanus/Di (12/10/16 09:45) Acetamin-Hydrocod 325-5 Mg ([place] 5-325 (12/10/16 09:45) Ice/Cold Pack (12/10/16 09:45) Tibia/Fibula (Ap/Lat) (12/10/16 ) MDM Medical Decision Making Medical Screen Exam Complete: Yes Emergency Medical Condition: Yes Medical Record Reviewed: Yes Interpretation(s) Last Impressions Tibia/Fibula X-Ray 12/10/16 0000 Signed Impressions: Service Date/Time: Saturday, December 10, 2016 09:59 - CONCLUSION: No acute abnormality is identified. Ga Browne MD Differential Diagnosis Differential diagnosis includes hematoma, fracture, compartment syndrome, contusion, abrasion, sprain, strain. Narrative Course X-ray of the left tibia/fibula was obtained. The patient's tetanus shot was updated. The patient had an ice pack placed over the hematoma the left lower extremity. 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 X- rays unremarkable. The patient then stated she had a tetanus shot 2013, therefore, the tetanus shot was not administered. The patient is advised elevate her left leg, ice, activity as tolerated, and Hartly as needed for pain. We will avoid ibuprofen/NSAIDs as the patient is already on Coumadin for factor V Leiden deficiency. Diagnosis Primary Impression: Traumatic hematoma of left lower leg Qualified Code: S80.12XA - Traumatic hematoma of left lower leg, initial encounter Additional Impression: Multiple abrasions Patient Instructions: General Instructions Additional Instructions: Elevate left leg and ice. Pain medication as directed. Activity as tolerated. Follow-up with your primary physician. Please provide the patient a copy of her x-ray results at discharge. Med/Other Pt SpecificInfo: Prescription(s) given Scripts Hydrocodone-Acetaminophen (Hartly)5-325 mg Tab1 Tab PO Q6H PRN (PAIN) #10 TAB Ref 0 Prov:Isaias Mayes MD 12/10/16 Disposition: DISCHARGE HOME Condition: Stable Isaias Mayes MD Dec 10, 2016 09:52
[2016-12-10] MEDS ORDERED: AMLO10TA2 PO (10:04)
--- NOTE | 2016-12-10 10:13 | RADRPT ---
EXAM DATE/TIME: 12/10/2016 09:59 [facility] COMPARISON: No previous studies available for comparison. INDICATIONS : Fall this am, left lower leg pain MEDICAL HISTORY : None. SURGICAL HISTORY : None. ENCOUNTER: Initial ACUITY: 1 day PAIN SCORE: 8/10 LOCATION: Left lower leg FINDINGS: Two views of the left leg demonstrate no fracture or dislocation. Mineralization is within normal anderson its. No soft tissue abnormality or radiopaque foreign body is identified. CONCLUSION: No acute abnormality is identified. Ga Browne MD on December 10, 2016 at 10:10 Board Certified Radiologist. This report was verified electronically.
[2016-12-10] MEDS ORDERED: NORC5TAB PO (10:28)
== END 2016-12-10 10:41 | disposition home or self-care (01) ==
LOC: PHED 09:25
DX: S80.12XA Contusion of left lower leg, initial encounter (principal); T14.8 Other injury of unspecified body region; E53.8 Deficiency of other specified B group vitamins; D68.51 Activated protein C resistance; Y92.410 Unspecified street and highway as the place of occurrence of the external cause; Y93.K1 Activity, walking an animal; W18.30XA Fall on same level, unspecified, initial encounter; Z79.01 Long term (current) use of anticoagulants
CPT/HCPCS: 73590; 99283

== ENCOUNTER 2016-12-18 23:34 | Emergency (ER) | payer OTHER ==
[~2016-12-18] VITALS: Ht 160 cm; Wt 83.8 kg
[~2016-12-18 23:34] MED LIST changes: +AMLO10TA2 PO; -AMLO5TAB2 PO; +NORC5TAB PO
[2016-12-18 23:44] VITALS: BP 125/77; PULSE 97; RESP 12; TEMP 97.9; O2SAT 98
--- NOTE | 2016-12-18 23:54 | PD ---
HPI Chief Complaint: LEFT HIP/GROIN PAIN Time Seen by Provider: 23:48 Travel History International Travel<30 days: No Contact w/Intl Traveler<30days: No Traveled to known affect area: No History of Present Illness HPI PATIENT WHILE AMBULATING HAD A MECH TRIP AND FALL, LANDED ON LEFT HIP AREA, HAS HAD 6/10 PAIN SINCE. SEEMS TO RADIATE TOWARDS HER LEFT GROIN REGION, ABLE TO AMBULATE INTO BED FROM TRIAGE. HAS MANY ADVERSE REACTIONS WITH PAIN MEDICATION AND REQUESTED ULTRAM PAIN CONTROL OF CHOICE. PFSH Past Medical History Hx Anticoagulant Therapy: Yes Anemia: Yes (B12 DEFICIENCY) Arthritis: Yes Asthma: Yes Autoimmune Disease: Yes Blood Disorders: Yes (FACTOR V LEIDEN) Anxiety: Yes Depression: Yes Heart Rhythm Problems: No Cancer: No Cardiovascular Problems: Yes (HTN) High Cholesterol: No Chemotherapy: No Chest Pain: No Congestive Heart Failure: No COPD: No Cerebrovascular Accident: No Diabetes: No Diminished Hearing: No Diverticulitis: Yes (FISTULA) Endocrine: No Fibromyalgia: Yes Gastrointestinal Disorders: Yes (FISTULA) GERD: Yes Genitourinary: No Headaches: Yes Hiatal Hernia: No Hypertension: Yes Immune Disorder: No Kidney Stones: Yes Musculoskeletal: Yes (CHRONIC BACK PAIN) Neurologic: Yes Psychiatric: Yes Reproductive: Yes (HYSTERECTOMY) Respiratory: Yes (ASTHMA) Immunizations Current: Yes Migraines: Yes Myocardial Infarction: No Radiation Therapy: No Renal Failure: No Seizures: No Shingles: Yes Sleep Apnea: No Thyroid Disease: No Ulcer: No PNEUMOCCOCAL Vaccine (Year): 2 Menopausal: Yes : 3 Para: 3 Miscarriage: 0 : 0 Ovarian Cysts: Yes (RIGHT CYST DIAGNOSED IN APR 2015) Tubal Ligation: Yes Past Surgical History Abdominal Surgery: Yes (HERNIA) AICD: No Appendectomy: No Arteriovenous Shunt: No Cardiac Surgery: No Cholecystectomy: Yes Ear Surgery: No Endocrine Surgery: No Eye Surgery: No Genitourinary Surgery: No Gynecologic Surgery: Yes (LAPROSCOPY) Hysterectomy: Yes Insulin Pump: No Joint Replacement: No Neurologic Surgery: Yes (low back surgery) Oral Surgery: No Pacemaker: No Thoracic Surgery: No Tonsillectomy: Yes Other Surgery: Yes (HERNIA, BREAST ENHANCEMENT) Social History Alcohol Use: No Tobacco Use: No Substance Use: No Allergies-Medications (Allergen,Severity, Reaction): Coded Allergies: Adhesives (Verified Allergy, Severe, ON BAND AIDES AND SOME IV DRESSINGS, 8/15/17) Demerol (Verified Allergy, Severe, Hives, 12/19/16) Dilaudid (Verified Allergy, Severe, "CAUSES ASTHMA TO FLARE UP", 12/19/16) Keflex (Verified Allergy, Severe, HIVES, 12/19/16) Lodine (Verified Allergy, Severe, "ITCHY", 12/19/16) Lyrica (Verified Allergy, Severe, "MAKE WHOLE BODY ACHE", 12/19/16) Penicillin (Verified Allergy, Severe, CAN'T REMEMBER, 12/19/16) Percocet (Verified Allergy, Severe, Itching, 12/19/16) Versed (Verified Allergy, Severe, VOMITTING, 12/19/16) Atenolol (Verified Allergy, Unknown, Edema, 12/19/16) Iodine (Verified Allergy, Unknown, 12/19/16) Cymbalta (Verified Adverse Reaction, Mild, BODY PAIN, 12/19/16) Reported Meds & Prescriptions Reported Meds & Active Scripts Active Ultram (Tramadol HCl) 50 Mg Tab 50 Mg PO Q4H PRN Flexeril (Cyclobenzaprine HCl) 10 Mg Tab 10 Mg PO TID [place] (Hydrocodone-Acetaminophen) 5-325 mg Tab 1 Tab PO Q6H PRN Reported Amlodipine (Amlodipine Besylate) 10 Mg Tab 10 Mg PO DAILY Warfarin 5 Mg Tab 5.5 Mg PO DAILY Effexor XR 24 HR (Venlafaxine HCl) 150 Mg Cap 150 Mg PO DAILY Review of Systems Except as stated in HPI: all other systems reviewed are Neg Musculoskeletal: Positive: Pain Physical Exam Narrative GENERAL: SKIN: Warm and dry. HEAD: Atraumatic. Normocephalic. EYES: Pupils equal and round. No scleral icterus. No injection or drainage. ENT: No nasal bleeding or discharge. Mucous membranes pink and moist. NECK: Trachea midline. No JVD. CARDIOVASCULAR: Regular rate and rhythm. RESPIRATORY: No accessory muscle use. Clear to auscultation. Breath sounds equal bilaterally. GASTROINTESTINAL: Abdomen soft, non-tender, nondistended. MUSCULOSKELETAL: Extremities without clubbing, cyanosis, or edema. No obvious deformities. NEUROLOGICAL: Awake and alert. No obvious cranial nerve deficits. Motor grossly within normal limits. Five out of 5 muscle strength in the arms and legs. Normal speech. PSYCHIATRIC: Appropriate mood and affect; insight and judgment normal. Data Data Last Documented VS Vital Signs Date Time Temp Pulse Resp B/P Pulse Ox O2 Delivery O2 Flow Rate FiO2 12/19/16 00:08 97 18 98 Room Air 12/19/16 00:04 97.9 125/77 Orders Orthostatic Vital Signs (12/18/16 23:49) Blood Glucose (12/18/16 23:49) Hip, Uni(Ap&Lat) W Ap Pelvis (12/18/16 ) Tramadol (Ultram) (12/19/16 00:00) MDM Medical Decision Making Medical Screen Exam Complete: Yes Emergency Medical Condition: Yes Medical Record Reviewed: Yes Differential Diagnosis LEFT HIP CONTUSION V BURSITIS V FX V DISLOCATION V PELVIC FX Narrative Course NORMAL GLUCOSE, NEG ORTHOSTATIC AND REVIEW OF XRAY SHOWED NEGATIVE FX/ DISLOCATION/SUBLUXATION OR EVEN PUBIC RAMUS FX. Diagnosis Primary Impression: Contusion of hip, left Qualified Code: S70.02XA - Contusion of left hip, initial encounter Patient Instructions: General Instructions, Hip Contusion (ED) Scripts Tramadol (Ultram)50 Mg Tab50 Mg PO Q4H PRN (PAIN) #28 TAB Prov:Feng Helm MD 12/19/16 Cyclobenzaprine (Flexeril)10 Mg Tab10 Mg PO TID #21 TAB Prov:Feng Helm MD 12/19/16 Disposition: 01 DISCHARGE HOME Condition: Stable Feng Helm MD Dec 18, 2016 23:54
[2016-12-19] MEDS ORDERED: traMADol HCL 50 MG TAB PO ONE
[2016-12-19 00:04] VITALS: BP 125/77; PULSE 97; RESP 18; TEMP 97.9; O2SAT 98
--- NOTE | 2016-12-19 00:26 | RADRPT ---
EXAM DATE/TIME: 12/18/2016 23:57 [facility] COMPARISON: No previous studies available for comparison. INDICATIONS : Trauma, fall. MEDICAL HISTORY : None. SURGICAL HISTORY : None. ENCOUNTER: Initial ACUITY: 1 week PAIN SCORE: 4/10 LOCATION: Left hip FINDINGS: Examination of the left hip was performed with AP Pelvis. The primary and secondary trabecular patte rn of the femoral neck is intact. The hip joint is of normal width without significant sclerosis or bony hypertrophy. The acetabulum is grossly intact. CONCLUSION: No fracture seen. Michael Miles MD on December 19, 2016 at 0:24 Board Certified Radiologist. This report was verified electronically.
[2016-12-19] MEDS ORDERED: ULTR50TA5 PO (00:36)
[2016-12-19] MEDS ORDERED: CYCL1TAB29 PO (00:36)
[2016-12-19 01:05] VITALS: BP 120/76
== END 2016-12-19 01:05 | disposition home or self-care (01) ==
LOC: PHED 23:34
DX: S70.02XA Contusion of left hip, initial encounter (principal); W01.0XXA Fall on same level from slipping, tripping and stumbling without subsequent striking against object, initial encounter; Y93.01 Activity, walking, marching and hiking
CPT/HCPCS: 73502; 99284

== ENCOUNTER 2017-01-17 08:36 | Emergency (ER) | payer OTHER ==
[~2017-01-17] VITALS: Ht 160 cm; Wt 78.6 kg
[~2017-01-17 08:36] MED LIST changes: +CYCL1TAB29 PO; +ULTR50TA5 PO
[2017-01-17 08:40] VITALS: BP 148/101; PULSE 111; RESP 16; TEMP 98.9; O2SAT 97
[2017-01-17] MEDS ORDERED: SODIUM CHLOR 0.9% 1000 ML INJ 1,000 ML IV SCH (08:50)
[2017-01-17] MEDS ORDERED: HYDR12.57 PO (08:55)
[2017-01-17] MEDS ORDERED: ONDANSETRON HCL 4 MG/2 ML VIAL IVP ONE (09:00)
[2017-01-17] MEDS ORDERED: SODIUM CHLORIDE 0.9% FLUSH 10 ML FLUSH IV FLUSH PRN (09:00)
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
[2017-01-17 09:21] LABS: AUTOMATED NEUTROPHIL # 5.6 TH/MM3 (1.8-7.7); BASOPHIL # 0.1 TH/MM3 (0-0.2); BASOPHIL % 0.8 % (0.0-2.0); EOSINOPHIL # 0.2 TH/MM3 (0-0.4); EOSINOPHIL % 2.3 % (0.0-4.0); HEMATOCRIT 42.9 % (35.0-46.0); HEMO FLAGS DIFF FINAL; LYMPH % 31.9 % (9.0-44.0); LYMPHOCYTE # 2.9 TH/MM3 (1.0-4.8); MEAN CELL VOLUME 81.2 FL (80.0-100.0); MEAN CORPUSCULAR HEMOGLOBIN 26.8 PG (27.0-34.0); MONO % 4.3 % (0.0-8.0); NEUT % 60.7 % (16.0-70.0); PLATELET COUNT 259 TH/MM3 (150-450); RED BLOOD COUNT 5.28 MIL/MM3 (4.00-5.30); RED CELL DISTRIBUTION WIDTH 13.7 % (11.6-17.2); WHITE BLOOD COUNT 9.2 TH/MM3 (4.0-11.0)
[2017-01-17] MEDS ORDERED: MORPHINE SULFATE 2 MG/ML INJ IV PUSH ONE (09:30)
[2017-01-17] MEDS ORDERED: MORPHINE SULFATE 4 MG/ML INJ IV PUSH ONE (09:30)
[2017-01-17 09:35] VITALS: O2SAT 97
[2017-01-17 10:13] LABS: ALKALINE PHOSPHATASE 87 U/L (45-117); ALT (GPT) 9 U/L (10-53); ANION GAP 10 MEQ/L (5-15); AST (GOT) 15 U/L (15-37); BICARBONATE 28.3 MEQ/L (21.0-32.0); BLOOD UREA NITROGEN 13 MG/DL (7-18); CHLORIDE 100 MEQ/L (98-107); GLOMERULAR FILTRATION RATE 81 ML/MIN (>89); SODIUM (NA) 138 MEQ/L (136-145); TOTAL BILIRUBIN ADULT 0.2 MG/DL (0.2-1.0)
[2017-01-17 10:15] VITALS: BP 141/93; PULSE 88; RESP 18; O2SAT 100
[2017-01-17 10:15] LABS: POTASSIUM 2.9 MEQ/L (3.5-5.1)
--- NOTE | 2017-01-17 10:25 | RADRPT ---
EXAM DATE/TIME: 01/17/2017 09:26 [facility] COMPARISON: CT ABDOMEN & PELVIS W/O CONTRAST, September 14, 2013, 23:52. CT ABDOMEN & PELVIS W CONTRAST, July 29 6, 2:35. CT ABDOMEN & PELVIS W/O CONTRAST, November 10, 2016, 11:57. INDICATIONS : Epigastric and periumbilical pain x 2 days. Nausea and vomiting. ORAL CONTRAST: No oral contrast ingested. RADIATION DOSE: 11.91 CTDIvol (mGy) MEDICAL HISTORY : Gastroesophageal reflux disease. Renal calculi. Hypertension. Fistula. SURGICAL HISTORY : Umbilical hernia repair. Cholecystectomy. Tubal ligation.Hysterectomy. Lumbar fusion. ENCOUNTER: Initial ACUITY: 2 days PAIN SCALE: 7/10 LOCATION: Periumbilical. TECHNIQUE: Volumetric scanning of the abdomen and pelvis was performed. Using automated exposure control and ad justment of the mA and/or kV according to patient size, radiation dose was kept as low as reasonably achievable to obtain optimal diagnostic quality images. DICOM format image data is available electro nically for review and comparison. FINDINGS: There is evidence of a small ventral abdominal wall hernia to the right of midline which contains onl y fat. This is stable compared to the previous examination in November. No bowel loop is noted within t his hernia. The appendix is normal. There are tiny stable calcifications in the expected region of the right side of the urinary bladder which are unchanged compared to the previous examinations datin g back to September of 2013. There is no acute obstructive uropathy. Evaluation of solid organs of the ab domen is limited by the lack of intravenous contrast. The patient is status-post cholecystectomy. M ild scoliosis of the thoracolumbar spine is noted. Posterior fusion hardware is noted within the lum bar spine and is stable at the L3 and L4 levels. The visualized lung bases are clear. No bowel obst ruction is noted. CONCLUSION: 1. Stable ventral abdominal wall hernia to the right of midline above the level of the umbilicus whic h contains only fat and is unchanged compared to the previous examination. 2. Stable calcifications within the right side of the urinary bladder which are unchanged compared to the previous examinations dating back to September of 2013. 3. No CT evidence of acute appendicitis. 4. Degenerative changes and scoliosis of the thoracolumbar spine. Luis No MD on January 17, 2017 at 9:59 Board Certified Radiologist. This report was verified electronically.
[2017-01-17] MEDS ORDERED: PROMETHAZINE INJ 25 MG/ML VIAL IM ONE (10:30)
[2017-01-17] MEDS ORDERED: POTASSIUM CHLORIDE 10 MEQ CONTROLLED RELEASE TAB PO ONE (10:45)
[2017-01-17] MEDS ORDERED: ZOFR4TAB3 SL (10:46)
[2017-01-17] MEDS ORDERED: POTA1TAB4 PO (10:46)
[2017-01-17] MEDS ORDERED: TRAM-388 PO (10:46)
== END 2017-01-17 11:00 | disposition home or self-care (01) ==
LOC: PHED 08:36
DX: K43.2 Incisional hernia without obstruction or gangrene (principal); E87.6 Hypokalemia; R11.2 Nausea with vomiting, unspecified; I10 Essential (primary) hypertension; Z86.2 Personal history of diseases of the blood and blood-forming organs and certain disorders involving the immune mechanism; Z87.39 Personal history of other diseases of the musculoskeletal system and connective tissue; Z87.09 Personal history of other diseases of the respiratory system; Z86.59 Personal history of other mental and behavioral disorders; Z86.79 Personal history of other diseases of the circulatory system; Z87.19 Personal history of other diseases of the digestive system; Z87.442 Personal history of urinary calculi; Z86.69 Personal history of other diseases of the nervous system and sense organs
CPT/HCPCS: 74176; 80053; 83690; 85025; 96361; 96372; 96374; 96375; 99285; J2270; J2405; J2550; J7030

== ENCOUNTER 2017-03-11 01:59 | Emergency (ER) | payer OTHER ==
[~2017-03-11] VITALS: Ht 160 cm; Wt 80.9 kg
[2017-03-11 01:19] VITALS: BP 155/72; PULSE 96; RESP 20; TEMP 98.3; O2SAT 97
[2017-03-11 01:38] VITALS: BP 125/90; PULSE 100; RESP 20; O2SAT 97
[~2017-03-11 01:59] MED LIST changes: -CYCL1TAB29 PO; +HYDR12.57 PO; -NORC5TAB PO; +POTA1TAB4 PO; +TRAM-388 PO; -ULTR50TA5 PO; +ZOFR4TAB3 SL
[2017-03-11] MEDS ORDERED: METHOCARBAMOL 500 MG TAB PO ONE (02:15)
[2017-03-11 02:23] LABS: AUTOMATED NEUTROPHIL # 5.2 TH/MM3 (1.8-7.7); BASOPHIL # 0.1 TH/MM3 (0-0.2); BASOPHIL % 0.6 % (0.0-2.0); EOSINOPHIL # 0.3 TH/MM3 (0-0.4); HEMATOCRIT 38.7 % (35.0-46.0); LYMPH % 41.7 % (9.0-44.0); LYMPHOCYTE # 4.5 TH/MM3 (1.0-4.8); MEAN CELL VOLUME 81.8 FL (80.0-100.0); MEAN CORPUSCULAR HEMOGLOBIN 27.4 PG (27.0-34.0); MEAN CORPUSCULAR HGB CONC 33.5 % (32.0-36.0); MONO % 6.3 % (0.0-8.0); NEUT % 48.4 % (16.0-70.0); PLATELET COUNT 261 TH/MM3 (150-450); RED BLOOD COUNT 4.73 MIL/MM3 (4.00-5.30); RED CELL DISTRIBUTION WIDTH 14.4 % (11.6-17.2); WHITE BLOOD COUNT 10.8 TH/MM3 (4.0-11.0)
[2017-03-11 02:29] LABS: POTASSIUM 3.5 MEQ/L (3.5-5.1)
[2017-03-11 02:32] LABS: BICARBONATE 27.4 MEQ/L (21.0-32.0); INTERNATIONAL NORMALIZED RATIO 1.9 RATIO; MAGNESIUM 2.3 MG/DL (1.5-2.5); PROTHROMBIN TIME - PATIENT 21.6 SEC (9.8-11.6)
[2017-03-11 02:35] LABS: HEMO FLAGS DIFF FINAL
[2017-03-11] MEDS ORDERED: CALCIUM CARBONATE 500 MG CHEWABLE TAB CHEW ONE (02:45)
[2017-03-11 02:52] VITALS: BP 121/75; PULSE 99; RESP 18; O2SAT 99
--- NOTE | 2017-03-11 03:29 | PD ---
HPI Chief Complaint: Pain: Acute or Chronic Time Seen by Provider: 02:03 Travel History International Travel<30 days: No Contact w/Intl Traveler<30days: No Traveled to known affect area: No History of Present Illness HPI 46-year-old female presents to the emergency department for complaint of bilateral lower extremity cramping. Patient states frequently she has bilateral lower extremity cramping and typically is able to massage out her muscle cramps. Patient has had electrolyte disturbance in the past. Patient also has history of patient states she takes Coumadin daily. Patient has not missed any of her medications reportedly and reports being compliant with her medications. Patient denies any injury or fall. Patient denies any recent long distance travel protracted bedrest her surgical procedure. Patient denies any prior history of DVT or PE. Patient is not noticed any swelling of the lower extremities or feet. Patient denies any chest pain pleuritic chest pain or shortness of breath. Patient denies any near-syncope or syncope. Patient reports her pain typically responds to tramadol. PFSH Past Medical History Narrative Medical Coumadin therapy factor V Leiden deficiency B-12 deficiency anemia arthritis asthma hypertension diverticulosis GERD chronic back pain and migraines kidney stones shingles ovarian cyst tubal ligation hysterectomy cholecystectomy; no tobacco use no alcohol use; nursing notes reviewed Hx Anticoagulant Therapy: Yes Anemia: Yes (B12 DEFICIENCY) Arthritis: Yes Asthma: Yes Autoimmune Disease: Yes Blood Disorders: Yes (FACTOR V LEIDEN) Anxiety: Yes Depression: Yes Heart Rhythm Problems: No Cancer: No Cardiovascular Problems: Yes (HTN) High Cholesterol: No Chemotherapy: No Chest Pain: No Congestive Heart Failure: No COPD: No Cerebrovascular Accident: No Diabetes: No Diminished Hearing: No Diverticulitis: Yes (FISTULA) Endocrine: No Fibromyalgia: Yes Gastrointestinal Disorders: Yes (FISTULA) GERD: Yes Genitourinary: No Headaches: Yes Hiatal Hernia: No Hypertension: Yes Immune Disorder: No Kidney Stones: Yes Musculoskeletal: Yes (CHRONIC BACK PAIN) Neurologic: Yes Psychiatric: Yes Reproductive: Yes (HYSTERECTOMY) Respiratory: Yes (ASTHMA) Immunizations Current: Yes Migraines: Yes Myocardial Infarction: No Radiation Therapy: No Renal Failure: No Seizures: No Shingles: Yes Sleep Apnea: No Thyroid Disease: No Ulcer: No PNEUMOCCOCAL Vaccine (Year): 2 ?: Not Menopausal: Yes : 3 Para: 3 Miscarriage: 0 : 0 Ovarian Cysts: Yes (RIGHT CYST DIAGNOSED IN APR 2015) Tubal Ligation: Yes Past Surgical History Abdominal Surgery: Yes (HERNIA) AICD: No Appendectomy: No Arteriovenous Shunt: No Cardiac Surgery: No Cholecystectomy: Yes Ear Surgery: No Endocrine Surgery: No Eye Surgery: No Genitourinary Surgery: No Gynecologic Surgery: Yes (LAPROSCOPY) Hysterectomy: Yes Insulin Pump: No Joint Replacement: No Neurologic Surgery: Yes (low back surgery) Oral Surgery: No Pacemaker: No Thoracic Surgery: No Tonsillectomy: Yes Other Surgery: Yes (HERNIA, BREAST ENHANCEMENT) Social History Alcohol Use: No Tobacco Use: No Substance Use: No Allergies-Medications (Allergen,Severity, Reaction): Coded Allergies: acetaminophen (Verified Allergy, Severe, Itching, 03/11/17) Patient denies 01/17/17 adhesive (Verified Allergy, Severe, ON BAND AIDES AND SOME IV DRESSINGS, 03/11/17) cephalexin (Verified Allergy, Severe, HIVES, 03/11/17) etodolac (Verified Allergy, Severe, "ITCHY", 03/11/17) hydromorphone (Verified Allergy, Severe, "CAUSES ASTHMA TO FLARE UP", 03/11) meperidine (Verified Allergy, Severe, Hives, 03/11/17) midazolam (Verified Allergy, Severe, VOMITTING, 03/11/17) oxycodone (Verified Allergy, Severe, Itching, 03/11/17) penicillin G (Verified Allergy, Severe, CAN'T REMEMBER, 03/11/17) pregabalin (Verified Allergy, Severe, "MAKE WHOLE BODY ACHE", 03/11/17) atenolol (Verified Allergy, Unknown, Edema, 03/11/17) iodine (Verified Allergy, Unknown, 03/11/17) potassium iodide (Verified Allergy, Unknown, 03/11/17) povidone-iodine (Verified Allergy, Unknown, 03/11/17) sodium iodide (Verified Allergy, Unknown, 03/11/17) sodium iodide (Verified Allergy, Unknown, 03/11/17) duloxetine (Verified Adverse Reaction, Mild, BODY PAIN, 03/11/17) Reported Meds & Prescriptions Reported Meds & Active Scripts Active Tramadol (Tramadol HCl) 50 Mg Tab 50 Mg PO Q6H PRN Flexeril (Cyclobenzaprine HCl) 10 Mg Tab 10 Mg PO TID Reported Hydrochlorothiazide 12.5 Mg Cap 12.5 Mg PO DAILY Amlodipine (Amlodipine Besylate) 10 Mg Tab 5 Mg PO BID Warfarin 5 Mg Tab 5.5 Mg PO DAILY Effexor XR 24 HR (Venlafaxine HCl) 150 Mg Cap 150 Mg PO DAILY Review of Systems Except as stated in HPI: all other systems reviewed are Neg General / Constitutional: No: Fever, Chills Eyes: No: Visual changes HENT: No: Headaches, Nosebleed, Neck Pain Cardiovascular: No: Chest Pain or Discomfort Respiratory: No: Shortness of Breath, Hemoptysis Gastrointestinal: No: Abdominal Pain, Hematemesis, Hematochezia Genitourinary: No: Decreased Urinary Output Musculoskeletal: Positive: Myalgias, Arthralgias, Cramping, Pain, No: Edema Skin: No Rash Neurologic: No: Weakness, Dizziness, Syncope, Focal Abnormalities, Coordination Problem Psychiatric: No: Anxiety Hematologic/Lymphatic: No: Easy Bruising Physical Exam Narrative GENERAL: Well-developed well-nourished female in no acute distress no respiratory distress GCS 15 SKIN: Warm and dry. HEAD: Normocephalic. EYES: No scleral icterus. No injection or drainage. NECK: Supple, trachea midline. No JVD or lymphadenopathy. CARDIOVASCULAR: Regular rate and rhythm without murmurs, gallops, or rubs. RESPIRATORY: Breath sounds equal bilaterally. No accessory muscle use. GASTROINTESTINAL: Abdomen soft, non-tender, nondistended. MUSCULOSKELETAL: No cyanosis, or edema. Negative Homans bilaterally no posterior calf cording negative compression test bilaterally lower extremities symmetric dorsalis pedis pulses 2+ to palpation capillary refill brisk and less than 2 seconds intact range of motion without deformity. BACK: Nontender without obvious deformity. Negative straight leg raising. No CVA tenderness. Data Data Last Documented VS Vital Signs Date Time Temp Pulse Resp B/P (MAP) Pulse Ox O2 Delivery O2 Flow Rate FiO2 03/11/17 03:37 86 18 123/81 (95) 98 03/11/17 02:52 Room Air 03/11/17 01:19 98.3 Orders Orders Complete Blood Count With Diff (03/11/17 02:03) Basic Metabolic Panel (Bmp) (03/11/17 02:03) Magnesium (Mg) (03/11/17 02:03) Prothrombin Time / Inr (Pt) (03/11/17 02:03) Methocarbamol (Robaxin) (03/11/17 02:15) Calcium Carbonate Chew (Tums Chew) (03/11/17 02:45) Ed Discharge Order (03/11/17 03:15) Labs Laboratory Tests Test 03/11/17 02:08 White Blood Count 10.8 TH/MM3 Red Blood Count 4.73 MIL/MM3 Hemoglobin 13.0 GM/DL Hematocrit 38.7 % Mean Corpuscular Volume 81.8 FL Mean Corpuscular Hemoglobin 27.4 PG Mean Corpuscular Hemoglobin Concent 33.5 % Red Cell Distribution Width 14.4 % Platelet Count 261 TH/MM3 Mean Platelet Volume 9.4 FL Neutrophils (%) (Auto) 48.4 % Lymphocytes (%) (Auto) 41.7 % Monocytes (%) (Auto) 6.3 % Eosinophils (%) (Auto) 3.0 % Basophils (%) (Auto) 0.6 % Neutrophils # (Auto) 5.2 TH/MM3 Lymphocytes # (Auto) 4.5 TH/MM3 Monocytes # (Auto) 0.7 TH/MM3 Eosinophils # (Auto) 0.3 TH/MM3 Basophils # (Auto) 0.1 TH/MM3 CBC Comment DIFF FINAL Differential Comment Prothrombin Time 21.6 SEC Prothromb Time International Ratio 1.9 RATIO Blood Urea Nitrogen 15 MG/DL Creatinine 0.74 MG/DL Random Glucose 91 MG/DL Calcium Level 8.1 MG/DL Magnesium Level 2.3 MG/DL Sodium Level 138 MEQ/L Potassium Level 3.5 MEQ/L Chloride Level 104 MEQ/L Carbon Dioxide Level 27.4 MEQ/L Anion Gap 7 MEQ/L Estimat Glomerular Filtration Rate 84 ML/MIN MDM Medical Decision Making Medical Screen Exam Complete: Yes Emergency Medical Condition: Yes Medical Record Reviewed: Yes Interpretation(s) CBC & BMP Diagram 03/11/17 02:08 Calcium Level 8.1 L, Magnesium Level 2.3 Vital Signs Date Time Temp Pulse Resp B/P (MAP) Pulse Ox O2 Delivery O2 Flow Rate FiO2 03/11/17 02:52 99 18 121/75 (90) 99 Room Air 03/11/17 01:38 20 03/11/17 01:38 100 20 125/90 (102) 97 Room Air 03/11/17 01:19 98.3 96 20 155/72 (99 97 Differential Diagnosis Muscle spasm, electrolyte disturbance, DVT Narrative Course IV access obtained specimens collected and sent for resulting Patient given Robaxin for muscle spasm Calcium is noted to be mildly decreased and given oral calcium replacement Values are resulted and patient resting comfortably states she still has some cramping somewhat improved but does not want any other medications in the emergency department states that she can take Flexeril as an outpatient and can take tramadol which is typically her regimen for and muscle cramps. Patient informed INR is 1.9 denies any swelling of the lower extremities increased warmth has had no chest pain or pleuritic chest pain and states that she does not want to have an ultrasound of the lower extremities. Diagnosis Primary Impression: Hypocalcemia Additional Impression: Muscle spasm of both lower legs Referrals: Primary Care Physician call for appointment Patient Instructions: General Instructions Departure Forms: Tests/Procedures Additional Instructions: Add calcium containing foods and beverages to dietary intake Take calcium supplement daily Take muscle relaxant as prescribed as needed Return to the emergency department for any concerns or change in condition Increase fluid hydration Follow-up with primary care provider call office to schedule follow-up appointment Med/Other Pt SpecificInfo: Prescription(s) given, No Change to Meds Scripts Tramadol (Tramadol) 50 Mg Tab 50 MG PO Q6H Y for PAIN, #15 TAB 0 Refills Prov: Jessica Snider MD 03/11/17 Cyclobenzaprine (Flexeril) 10 Mg Tab 10 MG PO TID for Muscle Spasm, #15 TAB 0 Refills Prov: Jessica Snider MD 03/11/17 Disposition: 01 DISCHARGE HOME Condition: Stable Jessica Snider MD Mar 11, 2017 03:29
[2017-03-11] MEDS ORDERED: CYCL10TA PO (03:32)
[2017-03-11] MEDS ORDERED: TRAM50TA PO (03:32)
[2017-03-11 03:37] VITALS: BP 123/81
== END 2017-03-11 03:45 | disposition home or self-care (01) ==
LOC: PHED 01:59
DX: E83.51 Hypocalcemia (principal); R25.2 Cramp and spasm; I10 Essential (primary) hypertension; Z79.01 Long term (current) use of anticoagulants; Z86.2 Personal history of diseases of the blood and blood-forming organs and certain disorders involving the immune mechanism; Z87.39 Personal history of other diseases of the musculoskeletal system and connective tissue; Z87.09 Personal history of other diseases of the respiratory system; Z86.59 Personal history of other mental and behavioral disorders; Z86.79 Personal history of other diseases of the circulatory system; Z87.19 Personal history of other diseases of the digestive system; Z87.442 Personal history of urinary calculi; Z86.69 Personal history of other diseases of the nervous system and sense organs
CPT/HCPCS: 80048; 83735; 85025; 85610; 99284

== ENCOUNTER 2017-08-06 07:11 | Emergency (ER) | payer SELFPAY ==
[~2017-08-06] VITALS: Ht 157.5 cm; Wt 76.5 kg
[~2017-08-06 07:11] MED LIST changes: +CYCL10TA PO; -POTA1TAB4 PO; -TRAM-388 PO; +TRAM50TA PO; -ZOFR4TAB3 SL
[2017-08-06 07:13] VITALS: BP 158/97; PULSE 104; RESP 16; TEMP 99.1; O2SAT 96
[2017-08-06] MEDS ORDERED: BACT800T5 PO (07:29)
[2017-08-06] MEDS ORDERED: PHEN0.4T PO (07:29)
--- NOTE | 2017-08-06 07:29 | PD ---
HPI Chief Complaint: Complaint Time Seen by Provider: 07:21 Travel History International Travel<30 days: No Contact w/Intl Traveler<30days: No Traveled to known affect area: No History of Present Illness HPI 47-year-old female complains of dysuria, frequency, low abdominal discomfort and low back pain. Patient states that his symptoms started 2 days ago. Patient states that she had low-grade fever at home. Patient denies any nausea vomiting diarrhea. Patient denies any vaginal discharge or bleeding. Patient has history of recurrent UTI in the past. PFSH Past Medical History Hx Anticoagulant Therapy: Yes (coumadin) Anemia: Yes (B12 DEFICIENCY) Arthritis: Yes Asthma: Yes Autoimmune Disease: Yes Blood Disorders: Yes (FACTOR V LEIDEN) Anxiety: Yes Depression: Yes Heart Rhythm Problems: No Cancer: No Cardiovascular Problems: Yes (HTN) High Cholesterol: No Chemotherapy: No Chest Pain: No Congestive Heart Failure: No COPD: No Cerebrovascular Accident: No Diabetes: No Diminished Hearing: No Diverticulitis: Yes (FISTULA) Endocrine: No Fibromyalgia: Yes Gastrointestinal Disorders: Yes (FISTULA) GERD: Yes Genitourinary: No Headaches: Yes Hiatal Hernia: No Hypertension: Yes Immune Disorder: No Kidney Stones: Yes Musculoskeletal: Yes (CHRONIC BACK PAIN) Neurologic: Yes Psychiatric: Yes Reproductive: Yes (HYSTERECTOMY) Respiratory: Yes (ASTHMA) Immunizations Current: Yes Migraines: Yes Myocardial Infarction: No Radiation Therapy: No Renal Failure: No Seizures: No Shingles: Yes Sleep Apnea: No Thyroid Disease: No Ulcer: No PNEUMOCCOCAL Vaccine (Year): 2 ?: Not Menopausal: Yes : 3 Para: 3 Miscarriage: 0 : 0 Ovarian Cysts: Yes (RIGHT CYST DIAGNOSED IN APR 2015) Tubal Ligation: Yes Past Surgical History Abdominal Surgery: Yes (HERNIA) AICD: No Appendectomy: No Arteriovenous Shunt: No Cardiac Surgery: No Cholecystectomy: Yes Ear Surgery: No Endocrine Surgery: No Eye Surgery: No Genitourinary Surgery: No Gynecologic Surgery: Yes (LAPROSCOPY) Hysterectomy: Yes Insulin Pump: No Joint Replacement: No Neurologic Surgery: Yes (low back surgery) Oral Surgery: No Pacemaker: No Thoracic Surgery: No Tonsillectomy: Yes Other Surgery: Yes (HERNIA, BREAST ENHANCEMENT) Social History Alcohol Use: No Tobacco Use: No Substance Use: No Allergies-Medications (Allergen,Severity, Reaction): Coded Allergies: acetaminophen (Verified Allergy, Severe, Itching, 03/11/17) Patient denies 01/17/17 adhesive (Verified Allergy, Severe, ON BAND AIDES AND SOME IV DRESSINGS, 03/11/17) cephalexin (Verified Allergy, Severe, HIVES, 03/11/17) etodolac (Verified Allergy, Severe, "ITCHY", 03/11/17) hydromorphone (Verified Allergy, Severe, "CAUSES ASTHMA TO FLARE UP", 03/11) meperidine (Verified Allergy, Severe, Hives, 03/11/17) midazolam (Verified Allergy, Severe, VOMITTING, 03/11/17) oxycodone (Verified Allergy, Severe, Itching, 03/11/17) penicillin G (Verified Allergy, Severe, CAN'T REMEMBER, 03/11/17) pregabalin (Verified Allergy, Severe, "MAKE WHOLE BODY ACHE", 03/11/17) atenolol (Verified Allergy, Unknown, Edema, 03/11/17) iodine (Verified Allergy, Unknown, 03/11/17) potassium iodide (Verified Allergy, Unknown, 03/11/17) povidone-iodine (Verified Allergy, Unknown, 03/11/17) sodium iodide (Verified Allergy, Unknown, 03/11/17) sodium iodide (Verified Allergy, Unknown, 03/11/17) duloxetine (Verified Adverse Reaction, Mild, BODY PAIN, 03/11/17) Reported Meds & Prescriptions Reported Meds & Active Scripts Active Tramadol (Tramadol HCl) 50 Mg Tab 50 Mg PO Q6H PRN Flexeril (Cyclobenzaprine HCl) 10 Mg Tab 10 Mg PO TID Reported Hydrochlorothiazide 12.5 Mg Cap 12.5 Mg PO DAILY Amlodipine (Amlodipine Besylate) 10 Mg Tab 5 Mg PO BID Warfarin 5 Mg Tab 5.5 Mg PO DAILY Effexor XR 24 HR (Venlafaxine HCl) 150 Mg Cap 150 Mg PO DAILY Review of Systems General / Constitutional: No: Fever Eyes: No: Visual changes HENT: No: Headaches Cardiovascular: No: Chest Pain or Discomfort Respiratory: No: Shortness of Breath Gastrointestinal: No: Abdominal Pain Genitourinary: Positive: Frequency, Dysuria Musculoskeletal: No: Pain Skin: No Rash Neurologic: No: Weakness Psychiatric: No: Depression Endocrine: No: Polydipsia Hematologic/Lymphatic: No: Easy Bruising Physical Exam Narrative GENERAL: Well-nourished, well-developed patient. SKIN: Focused skin assessment warm/dry. HEAD: Normocephalic. EYES: No scleral icterus. No injection or drainage. NECK: Supple, trachea midline. No JVD or lymphadenopathy. CARDIOVASCULAR: Regular rate and rhythm without murmurs, gallops, or rubs. RESPIRATORY: Breath sounds equal bilaterally. No accessory muscle use. GASTROINTESTINAL: Abdomen soft, non-tender, nondistended. MUSCULOSKELETAL: No cyanosis, or edema. BACK: Nontender without obvious deformity. No CVA tenderness. Neurologic exam normal. Data Data Last Documented VS Vital Signs Date Time Temp Pulse Resp B/P (MAP) Pulse Ox O2 Delivery O2 Flow Rate FiO2 08/06/17 07:13 99.1 104 16 158/97 (117) 96 Orders Orders Urinalysis - C+S If Indicated (08/06/17 07:12) [facility] Medical Decision Making Medical Screen Exam Complete: Yes Emergency Medical Condition: Yes Differential Diagnosis Differential diagnosis including urethritis, UTI, pyelonephritis, nephrolithiasis. Narrative Course 47-year-old female with dysuria and frequency. Diagnosis Primary Impression: UTI (urinary tract infection) Qualified Codes: N30.00 - Acute cystitis without hematuria Patient Instructions: General Instructions Additional Instructions: Bactrim DS as directed. Follow-up with personal physician. Return if worse. Med/Other Pt SpecificInfo: Prescription(s) given Scripts Phenazopyridine (Pyridium) 100 Mg Tab 100 MG PO Q8H Y for DYSURIA, #10 TAB 0 Refills Prov: Lan Mora MD 08/06/17 Sulfamethoxazole-Trimethoprim (Bactrim DS) 800-160 Mg Tab 1 TAB PO BID for Infection, #14 TAB 0 Refills Prov: Lan Mora MD 08/06/17 Disposition: 01 DISCHARGE HOME Condition: Stable Lan Mora MD Aug 06, 2017 07:29
[2017-08-06 07:34] LABS: BILIRUBIN, URINE NEG (NEG); BLOOD, URINE TRACE (NEG); GLUCOSE,URINE NEG (NEG); KETONE, URINE NEG (NEG); NITRITE,URINE NEG (NEG); PH, URINE 6.5 (5.0-8.5); URINE COLOR YELLOW (YELLW/STRAW); URINE LEUKOCYTE ESTERASE NEG (NEG)
[2017-08-06 07:48] LABS: WBC, URINE 0-2 /hpf (0-5)
== END 2017-08-06 07:40 | disposition home or self-care (01) ==
LOC: PHED 07:11
DX: N30.00 Acute cystitis without hematuria (principal); F32.9 Major depressive disorder, single episode, unspecified; F41.9 Anxiety disorder, unspecified; I10 Essential (primary) hypertension; J45.909 Unspecified asthma, uncomplicated; K21.9 Gastro-esophageal reflux disease without esophagitis; M79.7 Fibromyalgia; D68.51 Activated protein C resistance; N83.209 Unspecified ovarian cyst, unspecified side
CPT/HCPCS: 81001; 99283

== ENCOUNTER 2017-08-30 14:13 | Emergency (ER) | payer SELFPAY ==
[~2017-08-30] VITALS: Ht 157.5 cm; Wt 73.0 kg
[~2017-08-30 14:13] MED LIST changes: +BACT800T5 PO; -CYCL10TA PO; -HYDR12.57 PO; +PHEN0.4T PO; -TRAM50TA PO
[2017-08-30 14:17] VITALS: BP 130/74; PULSE 104; RESP 16; TEMP 98.9; O2SAT 96
[2017-08-30 14:57] LABS: BILIRUBIN, URINE NEG (NEG); BLOOD, URINE NEG (NEG); GLUCOSE,URINE NEG (NEG); KETONE, URINE NEG (NEG); NITRITE,URINE POS (NEG); PH, URINE 6.5 (5.0-8.5); URINE COLOR YELLOW (YELLW/STRAW); URINE LEUKOCYTE ESTERASE TRACE (NEG)
--- NOTE | 2017-08-30 14:58 | PD ---
HPI Chief Complaint: Complaint Time Seen by Provider: 14:30 Travel History International Travel<30 days: No Contact w/Intl Traveler<30days: No Traveled to known affect area: No History of Present Illness HPI This is a 47-year-old female here with dysuria, frequency, urgency 1 day. Denies fever chills. Symptom severity is moderate. Similar symptoms with prior UTIs. Was treated for UTI approximately 3 weeks ago with Bactrim. She reports symptoms resolved shortly after starting antibiotics and returned last night. No abdominal pain, nausea, vomiting, no back pain, vaginal discharge or bleeding. No aggravating or alleviating factors. PFSH Past Medical History Hx Anticoagulant Therapy: Yes (coumadin) Anemia: Yes (B12 DEFICIENCY) Arthritis: Yes Asthma: Yes Autoimmune Disease: Yes Blood Disorders: Yes (FACTOR V LEIDEN) Anxiety: Yes Depression: Yes Heart Rhythm Problems: No Cancer: No Cardiovascular Problems: Yes (htn on meds) High Cholesterol: No Chemotherapy: No Chest Pain: No Congestive Heart Failure: No COPD: No Cerebrovascular Accident: No Diabetes: No Diminished Hearing: No Diverticulitis: Yes (FISTULA) Endocrine: No Fibromyalgia: Yes Gastrointestinal Disorders: Yes (FISTULA) GERD: Yes Genitourinary: No Headaches: Yes Hiatal Hernia: No Hypertension: Yes Immune Disorder: No Kidney Stones: Yes Musculoskeletal: Yes (CHRONIC BACK PAIN) Neurologic: Yes Psychiatric: Yes Reproductive: Yes (HYSTERECTOMY) Respiratory: Yes (ASTHMA) Immunizations Current: Yes Migraines: Yes Myocardial Infarction: No Radiation Therapy: No Renal Failure: No Seizures: No Shingles: Yes Sleep Apnea: No Thyroid Disease: No Ulcer: No Tetanus Vaccination: Unknown Influenza Vaccination: Yes PNEUMOCCOCAL Vaccine (Year): 2 ?: Not Menopausal: Yes : 3 Para: 3 Miscarriage: 0 : 0 Ovarian Cysts: Yes (RIGHT CYST DIAGNOSED IN APR 2015) Tubal Ligation: Yes Past Surgical History Abdominal Surgery: Yes (HERNIA) AICD: No Appendectomy: No Arteriovenous Shunt: No Cardiac Surgery: No Cholecystectomy: Yes Ear Surgery: No Endocrine Surgery: No Eye Surgery: No Genitourinary Surgery: No Gynecologic Surgery: Yes (LAPROSCOPY) Hysterectomy: Yes Insulin Pump: No Joint Replacement: No Neurologic Surgery: Yes (low back surgery) Oral Surgery: No Pacemaker: No Thoracic Surgery: No Tonsillectomy: Yes Other Surgery: Yes (HERNIA, BREAST ENHANCEMENT) Social History Alcohol Use: No Tobacco Use: No Substance Use: No Allergies-Medications (Allergen,Severity, Reaction): Coded Allergies: acetaminophen (Verified Allergy, Severe, Itching, 08/30/17) Patient denies 01/17/17 adhesive (Verified Allergy, Severe, ON BAND AIDES AND SOME IV DRESSINGS, ) cephalexin (Verified Allergy, Severe, HIVES, 08/30/17) etodolac (Verified Allergy, Severe, "ITCHY", 08/30/17) hydromorphone (Verified Allergy, Severe, "CAUSES ASTHMA TO FLARE UP", 08/30) meperidine (Verified Allergy, Severe, Hives, 08/30/17) midazolam (Verified Allergy, Severe, VOMITTING, 08/30/17) oxycodone (Verified Allergy, Severe, Itching, 08/30/17) penicillin G (Verified Allergy, Severe, CAN'T REMEMBER, 08/30/17) pregabalin (Verified Allergy, Severe, "MAKE WHOLE BODY ACHE", 08/30/17) atenolol (Verified Allergy, Unknown, Edema, 08/30/17) iodine (Verified Allergy, Unknown, 08/30/17) potassium iodide (Verified Allergy, Unknown, 08/30/17) povidone-iodine (Verified Allergy, Unknown, 08/30/17) sodium iodide (Verified Allergy, Unknown, 08/30/17) sodium iodide (Verified Allergy, Unknown, 08/30/17) duloxetine (Verified Adverse Reaction, Mild, BODY PAIN, 08/30/17) Reported Meds & Prescriptions Reported Meds & Active Scripts Active Reported Amlodipine (Amlodipine Besylate) 10 Mg Tab 5 Mg PO BID Warfarin 5 Mg Tab 5.5 Mg PO DAILY Effexor XR 24 HR (Venlafaxine HCl) 150 Mg Cap 150 Mg PO DAILY Review of Systems Except as stated in HPI: all other systems reviewed are Neg General / Constitutional: No: Fever Eyes: No: Visual changes HENT: No: Headaches Cardiovascular: No: Chest Pain or Discomfort Respiratory: No: Shortness of Breath Gastrointestinal: No: Abdominal Pain Genitourinary: Positive: Urgency, Frequency, Dysuria Physical Exam Narrative GENERAL: Alert and well-appearing 47-year-old female. No distress. SKIN: Warm and dry. HEAD: Normocephalic. EYES: No injection or drainage. NECK: Supple CARDIOVASCULAR: Regular rate and rhythm without murmurs, gallops, or rubs. RESPIRATORY: Breath sounds equal bilaterally. No accessory muscle use. GASTROINTESTINAL: Abdomen soft, non-tender, nondistended. MUSCULOSKELETAL: No cyanosis, or edema. BACK: Nontender without obvious deformity. No CVA tenderness. Data Data Last Documented VS Vital Signs Date Time Temp Pulse Resp B/P (MAP) Pulse Ox O2 Delivery O2 Flow Rate FiO2 08/30/17 14:17 98.9 104 16 130/74 (92) 96 Orders Orders Urinalysis - C+S If Indicated (08/30/17 14:16) Labs Laboratory Tests Test 08/30/17 14:25 Urine Color YELLOW Urine Turbidity CLEAR Urine pH 6.5 Urine Specific [place] 1.010 Urine Protein TRACE mg/dL Urine Glucose (UA) NEG mg/dL Urine Ketones NEG mg/dL Urine Occult Blood NEG Urine Nitrite POS Urine Bilirubin NEG Urine Urobilinogen 1.0 MG/DL Urine Leukocyte Esterase TRACE Urine RBC 0-3 /hpf Urine WBC 3-5 /hpf Urine Squamous Epithelial Cells 0-5 /hpf Microscopic Urinalysis Comment CULT NOT INDICATED MDM Medical Decision Making Medical Screen Exam Complete: Yes Emergency Medical Condition: Yes Differential Diagnosis UTI, pyelonephritis, vaginitis Narrative Course 47-year-old female here with urinary frequency and dysuria 1 day. UA is positive for nitrates and leukocyte Estrace. She will be treated with Cipro Diagnosis Primary Impression: UTI (urinary tract infection) Qualified Codes: N30.00 - Acute cystitis without hematuria Referrals: Primary Care Physician Additional Instructions: Antibiotics as instructed. Pyridium as instructed. Drink plenty of fluid. Scripts Phenazopyridine (Pyridium) 100 Mg Tab 100 MG PO Q8HR for Dysuria for 2 Days, TAB 0 Refills Prov: Janell Aguirre 08/30/17 Nitrofurantoin Monohydrate Macrocrystals (Macrobid) 100 Mg Capsule 100 MG PO BID for Infection for 7 Days, #14 CAP 0 Refills Prov: Janell Aguirre 08/30/17 Disposition: 01 DISCHARGE HOME Condition: Stable Janell Aguirre Aug 30, 2017 14:58
[2017-08-30 15:09] LABS: RBC, URINE 0-3 /hpf (0-3); SQUAMOUS EPITHELIAL CELL URINE 0-5 /hpf (0-5)
[2017-08-30] MEDS ORDERED: PHEN0.4T PO (15:14)
[2017-08-30] MEDS ORDERED: MACR100C2 PO (15:14)
== END 2017-08-30 15:34 | disposition home or self-care (01) ==
LOC: PHEFT 14:13
DX: N39.0 Urinary tract infection, site not specified (principal); I10 Essential (primary) hypertension; E53.8 Deficiency of other specified B group vitamins; D68.2 Hereditary deficiency of other clotting factors; M79.7 Fibromyalgia; K21.9 Gastro-esophageal reflux disease without esophagitis; J45.909 Unspecified asthma, uncomplicated; M19.90 Unspecified osteoarthritis, unspecified site; Z87.442 Personal history of urinary calculi
CPT/HCPCS: 81001; 99283